=== PATIENT | female | born 1950 | race Caucasian/White ===

== ENCOUNTER → 2016-06-12 06:30 | Outpatient (CLI) | payer MEDICARE, OTHER ==
[~2016-06-12 06:30] MED LIST: FISH OIL 1,0001 CA1 PO; PREVACID15 MG PO; VIVELLE-DO1 PATCH.B1; ZIAC 5/6.25 MG1 TAB PO
[2016-06-12 06:45] LABS: BASOPHILS 0.4 % (0.0-2.0); EOSINOPHILS 3.2 % (0-7); HEMATOCRIT 44.6 % (36.0-48.0); HEMOGLOBIN 14.7 g/dL (12-16); IMMATURE GRANULOCYTES 0.3 % (0-5); LYMPHOCYTES 21.7 % (15-50); MCH 30.8 pg (26.0-34.0); MCV 93.5 fL (80.0-100.0); MONOCYTES 10.6 % (2-11); NEUTROPHILS 63.8 % (40-80); PLATELET COUNT 229 10x3/uL (130-400); RBC 4.77 10x6/uL (4.00-5.40)
[2016-06-12 07:13] LABS: ALBUMIN 3.1 g/dL (3.4-5.0); ANION GAP 11.9 mmol/L (8-16); BILIRUBIN - TOTAL 0.21 mg/dL (0.2-1.3); CALCIUM 8.8 mg/dL (8.5-10.1); CARBON DIOXIDE 27.3 mmol/L (21.0-32.0); CREATININE - SERUM 1.2 mg/dL (0.6-1.3); POTASSIUM - SERUM 4.2 mmol/L (3.5-5.1); PROTEIN - SERUM 7.2 g/dL (6.4-8.2); THYROID STIMULATING HORMONE 1.14 uIU/mL (0.36-3.74)
== END ==
LOC: D.RAD 06:30
PROVIDERS: Internal Medicine Gastroenterology
DX: R19.7 Diarrhea, unspecified (principal); K59.00 Constipation, unspecified

== ENCOUNTER → 2016-10-03 17:21 | Outpatient (CLI) | payer MEDICARE, OTHER ==
[2013-01-02 08:21] VITALS: BMI 25.7
== END | disposition home or self-care (01) ==
LOC: D.MAMMO 15:30
DX: Z12.31 Encounter for screening mammogram for malignant neoplasm of breast (principal)

== ENCOUNTER → 2016-11-14 09:35 | Outpatient (CLI) | payer MEDICARE, OTHER ==
[2013-01-02 08:21] VITALS: BMI 25.7
== END | disposition home or self-care (01) ==
LOC: D.MAMMO 09:35
DX: R92.8 Other abnormal and inconclusive findings on diagnostic imaging of breast (principal)

== ENCOUNTER → 2017-04-23 06:08 | Outpatient (CLI) | payer MEDICARE, OTHER ==
[2013-01-02 08:21] VITALS: BMI 25.7
== END | disposition home or self-care (01) ==
LOC: D.US 06:08
DX: M79.604 Pain in right leg (principal)

== ENCOUNTER → 2017-05-02 09:13 | Outpatient (CLI) | payer MEDICARE, OTHER ==
[2013-01-02 08:21] VITALS: BMI 25.7
== END | disposition home or self-care (01) ==
LOC: D.MRI 09:13
DX: R20.2 Paresthesia of skin (principal)

== ENCOUNTER 2017-05-16 09:25 | Emergency (ER) | payer MEDICARE, OTHER ==
[2013-01-02 08:21] VITALS: BMI 25.7
[2017-05-16 12:06] LABS: ALBUMIN 3.3 g/dL (3.4-5.0); ANION GAP 10.4 mmol/L (8-16); BILIRUBIN - TOTAL 0.36 mg/dL (0.2-1.3); CARBON DIOXIDE 28.4 mmol/L (21.0-32.0); CREATININE - SERUM 0.9 mg/dL (0.6-1.3); POTASSIUM - SERUM 3.8 mmol/L (3.5-5.1)
[2017-05-16 12:07] LABS: BASOPHILS 0.4 % (0-2); EOSINOPHILS 3.6 % (0-7); HEMATOCRIT 42.2 % (36.0-48.0); HEMOGLOBIN 14.1 g/dL (12-16); IMMATURE GRANULOCYTES 0.3 % (0-5); LYMPHOCYTES 27.3 % (15-50); MCH 30.8 pg (26.0-34.0); MCHC 33.4 g/dL (31.0-37.0); MCV 92.1 fL (80.0-100.0); MONOCYTES 7.7 % (2-11); NEUTROPHILS 60.7 % (40-80); PLATELET COUNT 185 10x3/uL (130-400); RBC 4.58 10x6/uL (4.00-5.40); RDW 14.3 % (11.5-14.5); WBC 9.8 10x3/uL (4.8-10.8)
[2017-05-16 12:38] LABS: APPEARANCE CLEAR (CLEAR); BILIRUBIN NEGATIVE (NEGATIVE); COLOR YELLOW (YELLOW); GLUCOSE NEGATIVE (NEGATIVE); KETONE NEGATIVE (NEGATIVE); NITRITE NEGATIVE (NEGATIVE); PROTEIN NEGATIVE (NEGATIVE); SPECIFIC GRAVITY 1.015 (1.005-1.020); UROBILINOGEN NORMAL (NORMAL)
== END 2017-05-16 17:40 | disposition home or self-care (01) ==
LOC: D.ER 09:25
PROVIDERS: Emergency Medicine
DX: I10 Essential (primary) hypertension (principal); F17.200 Nicotine dependence, unspecified, uncomplicated

== ENCOUNTER → 2017-06-25 16:49 | Outpatient (CLI) | payer MEDICARE, OTHER ==
[2013-01-02 08:21] VITALS: BMI 25.7
== END | disposition home or self-care (01) ==
LOC: D.MAMMO 08:30
DX: R92.8 Other abnormal and inconclusive findings on diagnostic imaging of breast (principal)

== ENCOUNTER → 2017-12-26 16:22 | Outpatient (CLI) | payer MEDICARE, OTHER ==
[2013-01-02 08:21] VITALS: BMI 25.7
== END | disposition home or self-care (01) ==
LOC: D.MAMMO 09:30
DX: Z12.31 Encounter for screening mammogram for malignant neoplasm of breast (principal)

== ENCOUNTER → 2018-08-07 08:07 | Outpatient (CLI) | payer MEDICARE, OTHER ==
[2013-01-02 08:21] VITALS: BMI 25.7
== END | disposition home or self-care (01) ==
LOC: D.US 08:07 → D.MAMMO 09:30 → D.US 09:30
PROVIDERS: ATTEND Family Medicine
DX: R92.8 Other abnormal and inconclusive findings on diagnostic imaging of breast (principal)

== ENCOUNTER 2019-10-01 19:00 | Outpatient (CLI) | payer MEDICARE, OTHER ==
[2013-01-02 08:21] VITALS: BMI 25.7
== END 2019-10-01 23:59 | disposition home or self-care (01) ==
LOC: D.MAMMO 19:00
PROVIDERS: ATTEND Family Medicine
DX: Z12.31 Encounter for screening mammogram for malignant neoplasm of breast (principal)

== ENCOUNTER → 2019-10-08 13:34 | Outpatient (CLI) | payer MEDICARE, OTHER ==
[2013-01-02 08:21] VITALS: BMI 25.7
== END | disposition home or self-care (01) ==
LOC: D.MAMMO 13:30
PROVIDERS: ATTEND Family Medicine
DX: R92.8 Other abnormal and inconclusive findings on diagnostic imaging of breast (principal)

== ENCOUNTER 2019-11-23 19:13 | Inpatient (IN) | payer MEDICARE, OTHER ==
[~2019-11-23] VITALS: Ht 167.6 cm; Wt 81.3 kg
[2019-11-23] MEDS ORDERED: COZAAR50 MG PO (19:28)
[2019-11-23 20:15] VITALS: BP 139/69
[2019-11-23 20:19] VITALS: BP 147/69
[2019-11-23 20:26] VITALS: BP 129/59
[2019-11-23 20:27] LABS: BASOPHILS 0.3 % (0-2); EOSINOPHILS 1.8 % (0-7); HEMATOCRIT 42.2 % (36.0-48.0); HEMOGLOBIN 13.9 g/dL (12-16); IMMATURE GRANULOCYTES 0.3 % (0-5); LYMPHOCYTES 13.3 % (15-50); MCH 30.8 pg (26.0-34.0); MCHC 32.9 g/dL (31.0-37.0); MCV 93.4 fL (80.0-100.0); MEAN PLATELET VOLUME 10.7 fL (7.4-10.4); MONOCYTES 5.6 % (2-11); NEUTROPHILS 78.7 % (40-80); PLATELET COUNT 208 10x3/uL (130-400); RBC 4.52 10x6/uL (4.00-5.40); RDW 14.2 % (11.5-14.5); WBC 16.9 10x3/uL (4.8-10.8)
[2019-11-23 20:54] VITALS: BP 139/65
[2019-11-23 21:03] LABS: ANION GAP 10.3 mmol/L (8-16); CARBON DIOXIDE 28.2 mmol/L (21.0-32.0); CREATININE - SERUM 1.2 mg/dL (0.6-1.3); POTASSIUM - SERUM 3.5 mmol/L (3.5-5.1)
[2019-11-23 21:09] LABS: ALBUMIN 3.2 g/dL (3.4-5.0); BILIRUBIN - TOTAL 0.29 mg/dL (0.2-1.3); PROTEIN - SERUM 6.5 g/dL (6.4-8.2)
[2019-11-23 22:38] LABS: BILIRUBIN NEGATIVE (NEGATIVE); KETONE NEGATIVE (NEGATIVE); NITRITE NEGATIVE (NEGATIVE); UROBILINOGEN NORMAL mg/dL (< 2)
--- NOTE | 2019-11-23 23:09 | NUR ---
COVID SWAB TO LAB
[2019-11-24] VITALS (11 sets, daily range): BP systolic 86–152; BP diastolic 38–86; BMI 29.0
[2019-11-24 05:44] LABS: BASOPHILS 0.2 % (0-2); EOSINOPHILS 1.1 % (0-7); HEMATOCRIT 41.8 % (36.0-48.0); HEMOGLOBIN 13.7 g/dL (12-16); IMMATURE GRANULOCYTES 0.3 % (0-5); MCH 30.3 pg (26.0-34.0); MCHC 32.8 g/dL (31.0-37.0); MCV 92.5 fL (80.0-100.0); MEAN PLATELET VOLUME 11.1 fL (7.4-10.4); MONOCYTES 6.8 % (2-11); NEUTROPHILS 72.6 % (40-80); PLATELET COUNT 242 10x3/uL (130-400); RBC 4.52 10x6/uL (4.00-5.40); RDW 14.3 % (11.5-14.5); WBC 14.4 10x3/uL (4.8-10.8)
[2019-11-24 06:34] LABS: ALBUMIN 3.4 g/dL (3.4-5.0); ANION GAP 11.5 mmol/L (8-16); BILIRUBIN - TOTAL 0.33 mg/dL (0.2-1.3); CALCIUM 9.4 mg/dL (8.5-10.1); CARBON DIOXIDE 29.5 mmol/L (21.0-32.0); PROTEIN - SERUM 6.8 g/dL (6.4-8.2)
--- NOTE | 2019-11-24 06:55 | NUR ---
A&O RESTING IN BED. C/O NAUSEA, ZOFRAN DRIP @ 4.7ML/HR. NO S/S OF ACUTE DISTRESS NOTED. NPO, D/T SCHEDULED FOR AN ORIF OF LEFT ANKLE TODAY. IN SPLINT, C/D/I. ICED AND ELEVATED. IV TO RIGHT AC, 1/2 NS INFUSING @ 50ML/HR. SITE PATENT WITHOUT REDNESS OR SWELLING. DENIES ANY NEEDS AT THIS TIME. CALL LIGHT IN REACH. WILL CONTINUE TO MONITOR.
[2019-11-24 11:38] LABS: APTT 33.8 SECONDS (22.8-39.4)
[2019-11-24 11:57] LABS: INR 1.02 (0.85-1.17); PROTIME 13.4 SECONDS (11.6-15.0)
--- NOTE | 2019-11-24 17:45 | NUR ---
RECEIVED TO ROOM 1211 VIA BED FROM PACU. A/O X3. DRESSING TO LEFT ANKLE DRY AND INTACT. DOESN'T WANT TO EAT RIGHT NOW. TRAY LEFT AT BEDSIDE.
--- NOTE | 2019-11-24 18:13 | NUR ---
RESTING QUIETLY IN BED. DENIES NEEDS. STILL NOT EATING SUPPER TRAY. REFUSED NICOTINE PATCH. NO CHANGES NOTED.
--- NOTE | 2019-11-24 19:45 | NUR ---
IN PT ROOM TO GIVE PAIN MEDS. SHE STATES SHE DOESN'T WANT TO BE SICK. I TOLD HER I WOULD GIVE NAUSEA MEDS ALONG WITH THE PAIN MEDS. HER LEFT ANKLE IS WRAPPED IN NAYLA WRAP. SHE CAN/T WIGGLE HER TOES BUT THEY ARE WARM AND DRY. IV IS IN THE RT ARM. ANKLE IS ELEVATED ON 2 PILLOWS.
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
--- NOTE | 2019-11-25 01:15 | NUR ---
PT UP TO [facility] TO VOID. SHE AGAIN VOIDED A LARGE AMT. SHE TRANSFERED WELL WITH ONE ASSIST.
--- NOTE | 2019-11-25 01:38 | NUR ---
PT WAS GIVEN PAIN MEDS AND NAUSEA MEDS. PT HAS NOT BEEN NAUSEATED AT ALL THIS SHIFT.
--- NOTE | 2019-11-25 01:53 | NUR ---
PT UP TO BSC. SHE TRANSFERED TO THE BSC AND BACK TO BED VERY WELL. VOIDED LARGE AMT. SHE C/O PAIN RATING IT A 7. I GAVE HER PO DILAUDID 4 MG, VISTARIL, ZOFRAN AND HER FIRST DOSE OF TORADOL IV. UP UNTIL THIS TIME SHE HAS BEEN SLEEPING WELL. SHE HAS HAD NO NAUSEA THIS SHIFT. SHE IS DRINKING SIPS OF WATER AND TOLERATING WELL. BP BEFORE MEDS 110/78.
[2019-11-25 04:00] VITALS: BP 106/68
[2019-11-25 07:24] LABS: BASOPHILS 0.1 % (0-2); EOSINOPHILS 0.3 % (0-7); HEMATOCRIT 37.3 % (36.0-48.0); HEMOGLOBIN 12.1 g/dL (12-16); IMMATURE GRANULOCYTES 0.3 % (0-5); LYMPHOCYTES 15.3 % (15-50); MCH 30.1 pg (26.0-34.0); MCHC 32.4 g/dL (31.0-37.0); MCV 92.8 fL (80.0-100.0); MEAN PLATELET VOLUME 11.3 fL (7.4-10.4); MONOCYTES 10.1 % (2-11); NEUTROPHILS 73.9 % (40-80); PLATELET COUNT 205 10x3/uL (130-400); RBC 4.02 10x6/uL (4.00-5.40); RDW 14.4 % (11.5-14.5); WBC 13.7 10x3/uL (4.8-10.8)
[2019-11-25 07:58] LABS: ALBUMIN 2.8 g/dL (3.4-5.0); ANION GAP 11.5 mmol/L (8-16); BILIRUBIN - TOTAL 0.28 mg/dL (0.2-1.3); CALCIUM 8.7 mg/dL (8.5-10.1); CARBON DIOXIDE 26.3 mmol/L (21.0-32.0); MAGNESIUM - SERUM 1.9 mg/dL (1.8-2.4); POTASSIUM - SERUM 3.8 mmol/L (3.5-5.1); PROTEIN - SERUM 6.4 g/dL (6.4-8.2)
[2019-11-25 08:00] VITALS: BP 113/39
--- NOTE | 2019-11-25 08:57 | OP ---
PATIENT NAME: DAYANNA NELSON MEDICAL RECORD: [id number] :50 LOCATION:D.M3 D.1211 ADMISSION DATE:11/24/19 SURGEON: SEBASTIAN HUTCHISON DO DATE OF OPERATION: 11/24/2019 PROCEDURE PERFORMED: Left ankle open reduction and internal fixation. PREOPERATIVE DIAGNOSIS: Left ankle bimalleolar fracture. POSTOPERATIVE DIAGNOSIS: Left ankle bimalleolar fracture. INDICATIONS: Ms. Nelson is a 69-year-old female who fell down some stairs yesterday and brought to the ER and seemed to have a bimalleolar ankle fracture that was subluxed quite laterally. The ER doctor did a very nice job of reducing it and splinting it. She was admitted and I saw her last night and reiterated for surgery today. I informed her of the risks for this including infection, bleeding, malunion, nonunion, blood clots, , continued pain, need for further surgery, failure of implants, and hardware removal and she has signed the consent. SURGEON: Sebastian Hutchison DO DESCRIPTION OF PROCEDURE: The patient received a block by anesthesia in the preoperative area. She was taken to the operative suite, laid in the supine position, given general anesthetic, given a gram of Ancef. The patient was sedated and LMA was placed. The left lower extremity was then prepped and draped in sterile fashion. A time-out was performed and everyone was in agreement with correct side, site, patient, and procedure. I then began by exsanguinating the left lower extremity with an Esmarch and tourniquet was inflated to 350 mmHg. Tourniquet was up for 34 minutes. We then made an incision on the lateral aspect, made careful dissection down to the fibula, reduced it and put a plate on, pinned the plate in place. Once it was in good position on AP and lateral, I locked it distally first and then did a reduction with a shaft screw proximally. I then put one more shaft lock screw in that was a cortical screw and then a locking screw in most proximal hole. I then addressed the medial side, made a curvilinear incision over the medial malleolus. It was quite displaced. I cleaned out the fracture site and reduced it and put 2 K-wires through it. I then put 2 cannulated screws 15 mm in length over the K-wires, reducing the fracture nicely and holding it in place. I then removed the K-wires and put a ZipTight across the plate on the lateral side to hold everything together well. I stressed the ankle joint. No widening was seen medially. I then let the tourniquet down. Jessy Quinonez, certified rn medical surgical, then closed with 2-0 Vicryl in interrupted fashion on each of the incisions and placed ZipLine on all them, then dressed it with Adaptic, 4 x 4, ABD on the heel and over the incision. A Webril, a cast padding, then a 4 x 30 splint placed posteriorly and secured with an Adolph wrap. She was then awakened and taken to recovery in stable condition. Blood loss minimal. Complications none. Tourniquet was let down at 34 minutes. NTS:[id number] Voice Confirmation ID: [id number] DOCUMENT ID: [id number] OPERATIVE REPORT [id number] DAYANNA NELSON MICHAEL D, DO at 0857 CC: [id number] DICTATION DATE: 11/24/19 1630 SPECIAL INSPECTOR: 11/25/19 0130 ADM IN [facility] [address] [place] [address]
--- NOTE | 2019-11-25 09:52 | NUR ---
PT ALERT X 4. BREATH SOUNDS CLEAR BILAT. IV TO RIGHT AC, PATENT, DRESSING CDI. PT REPORTING PAIN OF 5/10, WILL CONTINUE TO MONITOR. NAYLA TO LEFT LOWER LEG. BED LOW, CALL LIGHT IN REACH. NO OTHER NEEDS AT THIS TIME
[2019-11-25 10:41] VITALS: Ht 167.6 cm; Wt 81.3 kg
--- NOTE | 2019-11-25 14:39 | MORECARE ---
CASE MANAGEMENT DISCHARGE SUMMARY PATIENT: DAYANNA NELSON NILO UNIT: [id number] ADM DATE: 11/24/19 AGE: 69 : 50 SEX: F ROOM/BED: D.1211 AUTHOR: CHANCE STOCKTON PHYSICIAN: REFERRING PHYSICIAN: AJ BOLES DO DATE OF SERVICE: 11/25/19 Discharge Plan Patient Name: DAYANNA NELSON Facility: [facility]:[place] : 1950 Planned Disposition: Home Health Service Anticipated Discharge Date: 11/26/19 Discharge Date: Expected LOS: 2 Initial Reviewer: [email or web address] Initial Review Date: 11/23/2019 Generated: 11/25/19 3:38 pm Comments DCP- Discharge Planning Updated by [email or web address]: Kristan Hwang on 11/25/19 1:[address] CM met with patient to discuss initial discharge planning. Patient is in agreement to proceed. Patient reports that she lives at home alone and independently. Patient is alert/oriented. Stairs/steps: 12 steps to enter her condo. PCP: Dr. Frias. Pharmacy: [facility]. Patient states she has been able to obtain all of her prescribed medications. HHS: None. DME: None. Request a RW. Emergency contact: Baldev Castillo (brother) [phone]. 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 CM discussed the availability of HH, Rehab, SNF, OP Therapy, DME services. Patient is in agreement to HHS with [facility]. Patient is unsure if she will go home with her brother or if her daughter will be staying with her. Patient denies hospitalization within the past 30 days. 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 Transportation at time of discharge: Family. CM will contact [facility] for a RW. CM will follow and assist PRN with DC plans. External Providers [facility] Next Contact Date: Service Request Date: Service Type: Resolution: Reviewer: Comments: [facility] Next Contact Date: Service Request Date: Service Type: Resolution: Reviewer: Comments: Patient Name: DAYANNA NELSON Page [phone] at 1439 All edits/amendments must be made on the electronic document DICTATION DATE: 11/25/191437 HOUSEKEEPING CLEANER: DENISE 11/25/191437 RPT#: [id number] DC DATE: STATUS: ADM IN [facility] [address] [place] [address] END OF REPORT
--- NOTE | 2019-11-25 20:00 | NUR ---
ALERT RESTING IN BED LEFT FOOT WITH SPLINT AND NAYLA WRAP ELEVATED UP ON PILLOW, DENIES PAIN OR NEEDS AT THIS TIME, CALL KELLY RAMIREZ
[2019-11-25 20:40] VITALS: BP 91/46
[2019-11-26 04:37] VITALS: BP 116/66
--- NOTE | 2019-11-26 07:45 | NUR ---
PT RESTING IN BED WATCHING TV. RESP EVEN AND UNLABORED. REPORTS PAIN 5/10 TO LEFT ANKLE. DRESSING C/D/I. ABLE TO MOVE TOES, WARM TO TOUCH. SALINE LOC TO RIGHT AC. SITE WITHOUT REDNESS OR EDEMA. DENIES FURTHER NEEDS AT THIS TIME. CL WITHIN REACH. ENCOURGED TO CALL WITH NEEDS. CONTINUE POC
[2019-11-26] MEDS ORDERED: ELIQUIS2.5 MG PO (08:30)
[2019-11-26] MEDS ORDERED: DILAUDID2 MG PO (08:30)
[2019-11-26] MEDS ORDERED: VISTARIL50 MG PO (08:31)
[2019-11-26] MEDS ORDERED: ZOFRAN ODT4 MG/UDTAB PO (08:31)
[2019-11-26 08:38] VITALS: BP 118/54
--- NOTE | 2019-11-26 10:42 | MORECARE ---
CASE MANAGEMENT DISCHARGE SUMMARY PATIENT: FELA NELSON NILO UNIT: [id number] ADM DATE: 11/24/19 AGE: 69 : 50 SEX: F ROOM/BED: D.1211 AUTHOR: CHANCE STOCKTON PHYSICIAN: REFERRING PHYSICIAN: AJ BOLES DO DATE OF SERVICE: 11/26/19 Discharge Plan Patient Name: FELA NELSON Facility: [facility]:[place] : 1950 Planned Disposition: Home Health Service Anticipated Discharge Date: 11/26/19 Discharge Date: Expected LOS: 2 Initial Reviewer: [email or web address] Initial Review Date: 11/23/2019 Generated: 11/26/19 11:42 am Comments DCP- Discharge Planning Updated by [email or web address]: Kristan Hwang on 11/26/19 9:[address] CM faxed information to Tracie, [facility] ([phone]), with planned DC today. Walker has been delivered to patient's room. DCP- Discharge Planning Updated by [email or web address]: Kristan Hwang on 11/25/19 1:[address] CM met with patient to discuss initial discharge planning. Patient is in agreement to proceed. Patient reports that she lives at home alone and independently. Patient is alert/oriented. Stairs/steps: 12 steps to enter her condo. PCP: Dr. Frias. Pharmacy: [facility]. Patient states she has been able to obtain all of her prescribed medications. HHS: None. DME: None. Request a RW. Emergency contact: Baldev Castillo (brother) [phone]. 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 CM discussed the availability of HH, Rehab, SNF, OP Therapy, DME services. Patient is in agreement to [facility] with [facility]. Patient is unsure if she will go home with her brother or if her daughter will be staying with her. Patient denies hospitalization within the past 30 days. Patient denies the use of community resources MOTOR CHECKER. Transportation at time of discharge: Family. CM will contact [facility] for a RW. CM will follow and assist PRN with DC plans. Coverage Notice Reviewer: [id number] - Kristan Hwang Notice Issued Date-Time: 11/25/2019 14:40 Notice Type: Patient Choice Letter Notice Delivered To: Patient Relationship to Patient: Self Radio Frequency Engineer Name: Fela Nelson Delivery Method: HAND - Hand Delivered Kim Days: Prior Verbal Notification: Recipient Understood Notice: Yes Recipient Signature: Yes Med Rec Note Co-signed by Attending: Coverage Notice Comment: José Luis LUIS Last DP export: 11/25/19 1:39 p Patient Name: FELA NELSON Page [phone] at 1042 All edits/amendments must be made on the electronic document DICTATION DATE: 11/26/19 1042 SVP RESEARCH & EBUSINESS OPERATIONS: DENISE 11/26/19 1042 RPT#: [id number] DC DATE: STATUS: ADM IN [facility] [address] [place] [address] END OF REPORT
[2019-11-26 11:03] LABS: ANION GAP 8.4 mmol/L (8-16); BASOPHILS 0.4 % (0-2); CALCIUM 8.3 mg/dL (8.5-10.1); CARBON DIOXIDE 27.8 mmol/L (21.0-32.0); CREATININE - SERUM 1.1 mg/dL (0.6-1.3); EOSINOPHILS 2.2 % (0-7); HEMATOCRIT 35.8 % (36.0-48.0); HEMOGLOBIN 11.7 g/dL (12-16); IMMATURE GRANULOCYTES 0.2 % (0-5); LYMPHOCYTES 26.1 % (15-50); MCH 30.6 pg (26.0-34.0); MCHC 32.7 g/dL (31.0-37.0); MCV 93.7 fL (80.0-100.0); MONOCYTES 9.2 % (2-11); NEUTROPHILS 61.9 % (40-80); PLATELET COUNT 174 10x3/uL (130-400); POTASSIUM - SERUM 3.2 mmol/L (3.5-5.1); RBC 3.82 10x6/uL (4.00-5.40); RDW 14.7 % (11.5-14.5); WBC 11.2 10x3/uL (4.8-10.8)
[2019-11-26 11:08] LABS: ALBUMIN 2.8 g/dL (3.4-5.0); BILIRUBIN - TOTAL 0.27 mg/dL (0.2-1.3); PROTEIN - SERUM 6.3 g/dL (6.4-8.2)
[2019-11-26 11:39] VITALS: BP 122/51
[2019-11-26] MEDS ORDERED: NICODERM CQ1 EAC3 TOPICAL (14:30)
--- NOTE | 2019-11-26 16:15 | MORECARE ---
CASE MANAGEMENT DISCHARGE SUMMARY PATIENT: DAYANNA NELSON NILO UNIT: [id number] ADM DATE: 11/24/19 AGE: 69 : 50 SEX: F ROOM/BED: D.1211 AUTHOR: CHANCE STOCKTON PHYSICIAN: REFERRING PHYSICIAN: AJ BOLES DO DATE OF SERVICE: 11/26/19 Discharge Plan Patient Name: DAYANNA NELSON Facility: [facility]:[place] : 1950 Planned Disposition: Home Health Service Anticipated Discharge Date: 11/26/19 Discharge Date: 11/26/2019 Expected LOS: 2 Initial Reviewer: [email or web address] Initial Review Date: 11/23/2019 Generated: 11/26/19 5:14 pm Comments DCP- Discharge Planning Updated by [email or web address]: Kristan Hwang on 11/26/19 3:[address] Per [facility], the patient's SOC will be over this weekend, either Saturday or Saturday, patient's preference. CM faxed information to [facility] ([phone]), with planned DC today. Walker has been delivered to patient's room. DCP- Discharge Planning Updated by [email or web address]: Kristan Hwang on 11/25/19 1:[address] CM met with patient to discuss initial discharge planning. Patient is in agreement to proceed. Patient reports that she lives at home alone and independently. Patient is alert/oriented. Stairs/steps: 12 steps to enter her condo. PCP: Dr. Frias. Pharmacy: [facility]. Patient states she has been able to obtain all of her prescribed medications. HHS: None. DME: None. Request a RW. Emergency contact: Baldev Castillo (brother) [phone]. 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 CM discussed the availability of HH, Rehab, SNF, OP Therapy, DME services. Patient is in agreement to HHS with [facility]. Patient is unsure if she will go home with her brother or if her daughter will be staying with her. Patient denies hospitalization within the past 30 days. Patient denies the use of community resources CLIENT TECHNOLOGIES ANALYST. Transportation at time of discharge: Family. CM will contact [facility] for a RW. CM will follow and assist PRN with DC plans. Coverage Notice Reviewer: [id number] - Kristan Hwang Notice Issued Date-Time: 11/25/2019 14:40 Notice Type: Patient Choice Letter Notice Delivered To: Patient Relationship to Patient: Self Talent Acquisition Assistant Name: Dayanna Nelson Delivery Method: HAND - Hand Delivered Kim Days: Prior Verbal Notification: Recipient Understood Notice: Yes Recipient Signature: Yes Med Rec Note Co-signed by Attending: Coverage Notice Comment: José Luis SMITH Last DP export: 11/26/19 9:42 a Patient Name: DAYANNA NELSON Page [phone] at 1615 All edits/amendments must be made on the electronic document DICTATION DATE: 11/26/191613 ELECTRIC STOVE MECHANIC: DENISE 11/26/194 RPT#: [id number] DC DATE:11/26/19 STATUS: DIS IN [facility] [address] [place] [address] END OF REPORT
== END 2019-11-26 15:44 | disposition home health service (06) | DRG 493 ==
LOC: D.ER 19:13 → OBSVTIME 21:05 → D.MS 21:05 → D.M3 11-24 14:21
PROVIDERS: Family Medicine; Orthopaedic Surgery; ADMIT Family Medicine; ATTEND Family Medicine
PROC: 0QSH04Z Reposition Left Tibia with Internal Fixation Device, Open Approach (ICD-10-PCS; 2019-11-24)
PROC: 0QSK04Z Reposition Left Fibula with Internal Fixation Device, Open Approach (ICD-10-PCS; principal; 2019-11-24 16:45)
DX: S82.842A Displaced bimalleolar fracture of left lower leg, initial encounter for closed fracture (principal); F17.203 Nicotine dependence unspecified, with withdrawal; I10 Essential (primary) hypertension; K21.9 Gastro-esophageal reflux disease without esophagitis; E78.5 Hyperlipidemia, unspecified; W10.9XXA Fall (on) (from) unspecified stairs and steps, initial encounter

== ENCOUNTER 2020-05-26 16:50 | Observation (INO) | payer MEDICARE, OTHER ==
[~2020-05-26] VITALS: Ht 167.6 cm; Wt 81.8 kg
[2020-05-26] VITALS (7 sets, daily range): BP systolic 119–141; BP diastolic 49–64
[~2020-05-26 16:50] MED LIST changes: +COZAAR50 MG PO; +DILAUDID2 MG PO; +ELIQUIS2.5 MG PO; +NICODERM CQ1 EAC3 TOPICAL; +VISTARIL50 MG PO; +ZOFRAN ODT4 MG/UDTAB PO
[2020-05-26 17:54] LABS: BASOPHILS 0.2 % (0-2); EOSINOPHILS 3.3 % (0-7); HEMATOCRIT 43.1 % (36.0-48.0); HEMOGLOBIN 14.7 g/dL (12-16); IMMATURE GRANULOCYTES 0.2 % (0-5); LYMPHOCYTE ABS# 3.44 10x3/uL (1.18-3.74); LYMPHOCYTES 32.8 % (15-50); MCH 30.3 pg (26.0-34.0); MCHC 34.1 g/dL (31.0-37.0); MCV 88.9 fL (80.0-100.0); MEAN PLATELET VOLUME 10.9 fL (7.4-10.4); MONOCYTES 8.2 % (2-11); NEUTROPHIL ABS# 5.81 10x3/uL (1.56-6.13); NEUTROPHILS 55.3 % (40-80); PLATELET COUNT 186 10x3/uL (130-400); RBC 4.85 10x6/uL (4.00-5.40); RDW 13.9 % (11.5-14.5); WBC 10.5 10x3/uL (4.8-10.8)
[2020-05-26 18:04] LABS: INR 1.04 (0.85-1.17); PROTIME 12.6 SECONDS (11.6-15.0)
--- NOTE | 2020-05-26 18:05 | NUR ---
STROKE BAND NUMBER-[id number]
--- NOTE | 2020-05-26 18:06 | NUR ---
NEURO EXAM DONE BY ELLEN WAGONER WAS 0 ON THE [facility] SCALE
[2020-05-26 18:07] LABS: CALC OSMOLALITY 285 mosm/kg (275-300); CALCIUM 9.8 mg/dL (8.5-10.1); CARBON DIOXIDE 29.9 mmol/L (21.0-32.0); CHLORIDE - SERUM 99 mmol/L (98-107); CREATININE - SERUM 1.1 mg/dL (0.6-1.3); GLUCOSE 129 mg/dL (74-106); SODIUM 140 mmol/L (136-145); UREA NITROGEN 26 mg/dL (7-18); eGFR NON AFRICAN AMERICAN 52 mL/min (90-120)
[2020-05-26 18:24] LABS: ALBUMIN 3.6 g/dL (3.4-5.0); ALKALINE PHOSPHATASE 109 U/L (30-120); ALT (SGPT) 21 U/L (10-68); BILIRUBIN - TOTAL 0.24 mg/dL (0.2-1.3); CKMB 0.4 U/L (0.0-3.6); CREATINE KINASE 27 UL (21-215); MAGNESIUM - SERUM 1.7 mg/dL (1.8-2.4); PROTEIN - SERUM 7.7 g/dL (6.4-8.2); THYROID STIMULATING HORMONE 1.27 uIU/mL (0.36-3.74)
[2020-05-26 18:25] LABS: TROPONIN-I < 0.017 ng/mL (0.000-0.060)
--- NOTE | 2020-05-26 21:18 | NUR ---
REPORT GIVEN TO MICHELA MARTIN, VERBAL ACKNOWLEDGEMENT OBTAINED
[2020-05-26 21:49] LABS: CHOL - HDL RATIO 3.7 ratio (2.3-4.1); LDL-HDL RATIO 1.9 ratio (1.5-3.5)
[2020-05-26] MEDS ORDERED: HCTZ25 MG PO (21:54)
[2020-05-26] MEDS ORDERED: COZAAR50 MG PO (21:55)
[2020-05-26] MEDS ORDERED: CYCLOBENZAPRINE10 MG PO (22:02)
[2020-05-26] MEDS ORDERED: ACETAMINOPHEN500 M1 PO (22:18)
[2020-05-26 23:51] LABS: CKMB 0.2 U/L (0.0-3.6); CREATINE KINASE 30 UL (21-215); TROPONIN-I < 0.017 ng/mL (0.000-0.060)
[2020-05-27] VITALS: BP 111/53
[2020-05-27 04:00] VITALS: BP 110/52
[2020-05-27 04:05] VITALS: Ht 167.6 cm; Wt 81.8 kg
[2020-05-27 06:47] LABS: ALBUMIN 3.3 g/dL (3.4-5.0); ALKALINE PHOSPHATASE 99 U/L (30-120); ALT (SGPT) 18 U/L (10-68); BILIRUBIN - TOTAL 0.41 mg/dL (0.2-1.3); CALC OSMOLALITY 275 mosm/kg (275-300); CALCIUM 9.2 mg/dL (8.5-10.1); CARBON DIOXIDE 30.6 mmol/L (21.0-32.0); CHLORIDE - SERUM 100 mmol/L (98-107); CKMB 0.4 U/L (0.0-3.6); CREATINE KINASE 32 UL (21-215); CREATININE - SERUM 0.9 mg/dL (0.6-1.3); GLUCOSE 113 mg/dL (74-106); MAGNESIUM - SERUM 1.9 mg/dL (1.8-2.4); POTASSIUM - SERUM 3.2 mmol/L (3.5-5.1); PROTEIN - SERUM 7.1 g/dL (6.4-8.2); SODIUM 136 mmol/L (136-145); TROPONIN-I < 0.017 ng/mL (0.000-0.060); UREA NITROGEN 20 mg/dL (7-18); eGFR NON AFRICAN AMERICAN 66 mL/min (90-120)
[2020-05-27 06:48] LABS: BASOPHILS 0.3 % (0-2); EOSINOPHILS 2.4 % (0-7); HEMATOCRIT 41.7 % (36.0-48.0); HEMOGLOBIN 13.7 g/dL (12-16); IMMATURE GRANULOCYTES 0.2 % (0-5); LYMPHOCYTE ABS# 2.13 10x3/uL (1.18-3.74); LYMPHOCYTES 19.6 % (15-50); MCH 29.5 pg (26.0-34.0); MCHC 32.9 g/dL (31.0-37.0); MCV 89.9 fL (80.0-100.0); MEAN PLATELET VOLUME 11.1 fL (7.4-10.4); MONOCYTES 7.1 % (2-11); NEUTROPHIL ABS# 7.67 10x3/uL (1.56-6.13); NEUTROPHILS 70.4 % (40-80); PLATELET COUNT 192 10x3/uL (130-400); RBC 4.64 10x6/uL (4.00-5.40); RDW 13.9 % (11.5-14.5); WBC 10.9 10x3/uL (4.8-10.8)
[2020-05-27 08:57] VITALS: BP 115/54
--- NOTE | 2020-05-27 09:00 | NUR ---
ALERT AND OIRENTED X4. NO HEMIPAREIS OR CONFUSION NOTED. TELEMETRY INTACT WITH ELECTROLYTES REPLACED PER PROTOCOL. REFUSES SCD WITH GOOD EFFORT WITH INCENTIVE SPIROMETRY. ENCOURAGED TO USE CALL LIGHT FOR ASSSIT.
[2020-05-27 11:57] LABS: CKMB 0.3 U/L (0.0-3.6); CREATINE KINASE 26 UL (21-215)
[2020-05-27 11:58] LABS: TROPONIN-I < 0.017 ng/mL (0.000-0.060)
[2020-05-27 12:04] LABS: BILIRUBIN NEGATIVE (NEGATIVE); KETONE NEGATIVE (NEGATIVE); NITRITE NEGATIVE (NEGATIVE); UROBILINOGEN NORMAL mg/dL (< 2)
[2020-05-27] MEDS ORDERED: PLAVIX75 MG PO (12:11)
[2020-05-27] MEDS ORDERED: CHANTIX0.5 MG PO (12:16)
[2020-05-27 12:21] VITALS: BP 120/54
[2020-05-27] MEDS ORDERED: NICODERM CQ1 EAC3 TOPICAL (16:16)
--- NOTE | 2020-05-27 17:08 | NUR ---
IV DISCONTINUED AND VERBALIZED UNDERSTANDING OF DISCHARGE INSTRUCTIONS. STABLE AT TIME OF DISCHARGE
== END 2020-05-27 17:10 | disposition home or self-care (01) ==
LOC: D.ER 16:50 → D.MS 20:54 → OBSVTIME 20:54 → D.MS 05-27 17:10
PROVIDERS: Emergency Medicine; ADMIT Family Medicine; ATTEND Family Medicine
DX: G45.9 Transient cerebral ischemic attack, unspecified (principal); E87.6 Hypokalemia; E83.42 Hypomagnesemia; F17.203 Nicotine dependence unspecified, with withdrawal; I10 Essential (primary) hypertension; E78.5 Hyperlipidemia, unspecified; K21.9 Gastro-esophageal reflux disease without esophagitis